=== PATIENT | male | born 1990 | race Two or more races ===

== ENCOUNTER 2024-11-05 22:32 | Emergency (ER) | payer SELFPAY ==
[2024-11-05 22:40] VITALS: BP 155/77; PULSE 89; RESP 20; TEMP 98.1; BMI 30.2
== END 2024-11-05 23:49 | disposition home or self-care (01) ==
LOC: JER 22:32
DX: R05.9 Cough, unspecified (principal); R51.9 Headache, unspecified; J06.9 Acute upper respiratory infection, unspecified; Z20.822 Contact with and (suspected) exposure to COVID-19
CPT/HCPCS: 0241U-QW; 71046-TC-FY; 99284-25